=== PATIENT | female | born 1955 | race Caucasian/White ===

== ENCOUNTER → 2020-11-03 11:49 | Outpatient (CLI) | payer OTHER, SELFPAY ==
--- NOTE | ~2020-11-03 | XR_ITS ---
EXAMINATION: XR shoulder RT min 2V DATE: 11/03/2020 12:21 INDICATION: Right shoulder pain. Nontraumatic incomplete tear of right rotator cuff. TECHNIQUE: 4 views of right shoulder were obtained. COMPARISON: None. FINDINGS: Bone alignment is normal. No fracture. Glenohumeral joint is normal. There is severe acromi oclavicular joint osteoarthritis. IMPRESSION: 1. Severe right acromioclavicular joint osteoarthritis. Reviewed, dictated and finalized at location B.
== END ==
DX: M75.111 Incomplete rotator cuff tear or rupture of right shoulder, not specified as traumatic (principal); M19.011 Primary osteoarthritis, right shoulder
CPT/HCPCS: 73030

== ENCOUNTER 2021-07-23 23:01 | Emergency (ER) | payer OTHER, SELFPAY ==
[2021-07-23 23:06] VITALS: BP 125/65; PULSE 113; RESP 18; TEMP 36.4; O2SAT 98
[2021-07-24 00:03] VITALS: PULSE 97; RESP 18; O2SAT 97
--- NOTE | 2021-07-24 00:07 | PC.NURSE ---
pt choses to sit in area of waiting room (family services room) away from other pts. pt informed that she is now out of [id number] with triage nurse. if pt experiences worsening of condition she will not be seen by internet systems administrator. pt verbalizes understanding
[2021-07-24 01:44] VITALS: BP 111/82; PULSE 93; RESP 20; TEMP 36.4; O2SAT 97
--- NOTE | 2021-07-24 02:03 | ED.GENADULT ---
HPI - General Adult General Chief complaint: Allergic Reaction Stated complaint: allergic reaction Time Seen by Provider: 07/24/21 01:43 History of Present Illness HPI narrative: Patient is a 66-year-old female who presents the emergency department with chief complaint of angioedema of the tongue. 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 The patient states he is afraid that she has COVID-19 and reports that this evening she had an episode where her tongue started swelling up. Patient reports he took 40 mg of prednisone and reports that she took a dose of Benadryl. The patient states this was about 3 hours ago patient did have to wait an extended period of time in the waiting room but by the time she is arrived now she states her swelling is going down and she is back to basically her baseline. Related Data Allergies Allergy/AdvReac Type Severity Reaction Status Date / Time acetaminophen [From Tylenol] Allergy Anaphylactic Verified 07/24/21 01:49 Shock dexamethasone Allergy Anaphylactic Verified 07/24/21 01:49 Shock NSAIDS (Non-Steroidal Allergy Anaphylactic Verified 07/24/21 01:49 Anti-Inflamma Shock Penicillins Allergy Anaphylactic Verified 07/24/21 01:49 Shock Review of Systems Review of Systems: A 10 system review of systems was completed on the patient and is negative except for what is stated in the HPI. Nursing and ancillary documentation was reviewed. Exam Narrative: GENERAL: Well-appearing, well-nourished, and in no acute distress. HEAD: Normocephalic, atraumatic. EYES: PERRLA and EOMI. ENT: Nares clear, no rhinorrhea or epistaxis. Mucous membranes moist. NECK: Supple. CHEST: Clear to auscultation. No respiratory distress. HEART: Regular rate and rhythm. No murmur heard. Normal peripheral pulses. ABDOMEN: Soft, nontender, nondistended, normal active bowel sounds. EXTREMITIES: Normal range of motion. No edema. SKIN: Warm, dry, no rash. NEURO: No focal deficits. Alert and oriented x3. PSYCH: Normal mood and affect. Course Course Emergency Course: Patient states that at this time she does not want IV steroids patient will be discharged home a COVID swab was performed Vital Signs Vital signs: Vital Signs Temperature 36.4 C 07/23/21 23:06 Pulse Rate 113 H 07/23/21 23:06 Respiratory Rate 18 07/23/21 23:06 Blood Pressure 125/65 07/23/21 23:06 Pulse Oximetry 98 07/23/21 23:06 Temperature 36.4 C 07/24/21 01:44 Pulse Rate 93 07/24/21 01:44 Respiratory Rate 20 07/24/21 01:44 Blood Pressure 111/82 07/24/21 01:44 Pulse Oximetry 97 07/24/21 01:44 Medical Decision Making Vital Signs Vital Signs: Vital Signs Temperature 36.4 C 07/23/21 23:06 Pulse Rate 113 H 07/23/21 23:06 Respiratory Rate 18 07/23/21 23:06 Blood Pressure 125/65 07/23/21 23:06 Pulse Oximetry 98 07/23/21 23:06 Temperature 36.4 C 07/24/21 01:44 Pulse Rate 93 07/24/21 01:44 Respiratory Rate 20 07/24/21 01:44 Blood Pressure 111/82 07/24/21 01:44 Pulse Oximetry 97 07/24/21 01:44 Discharge Plan Discharge Clinical Impression: Angioedema Qualifiers: Encounter type: initial encounter Qualified Code(s): T78.3XXA - Angioneurotic edema, initial encounter Allergic reaction Qualifiers: Encounter type: initial encounter Qualified Code(s): T78.40XA - Allergy, unspecified, initial encounter Patient Disposition: Home, Self-Care Condition: Stable Instructions: Antibiotic Form, General Allergic Reaction (ED) Additional Instructions: Please take your steroid pulse dose. Please check the portal for your results of COVID-19 and follow-up with your primary care physician Follow-up/Referrals: Sunita,Pedro Tobin MD [Primary Care Provider] - Time of Disposition: 02:05
[2021-07-24 05:46] LABS: SARS-CoV-2 RNA PCR Negative
== END 2021-07-24 02:12 | disposition home or self-care (01) ==
PROVIDERS: Emergency Provider Emergency Medicine; PCP Family Medicine
DX: T78.3XXA Angioneurotic edema, initial encounter (principal); Z20.822 Contact with and (suspected) exposure to COVID-19
CPT/HCPCS: 99283; C9803; U0003; U0005

== ENCOUNTER 2021-10-01 21:06 | Emergency (ER) | payer OTHER, SELFPAY ==
[2021-10-01 21:09] VITALS: BP 153/84; PULSE 87; RESP 17; TEMP 36.2; O2SAT 98
--- NOTE | 2021-10-01 21:27 | ED.GENADULT ---
HPI - General Adult General Chief complaint: Environmental Exposure Stated complaint: carbon monoxide exposure Time Seen by Provider: 10/01/21 21:14 Source: patient Mode of arrival: EMS Limitations: no limitations History of Present Illness HPI narrative: 58-year-old female presented to the emergency department for evaluation of carbon monoxide poisoning. Patient states that at approximately 4:00 she pulled her car into the garage and was distracted by the house phone ringing. Patient states she ran into the home to answer the phone and had not shut off her car. Patient states about 45 minutes later she went out to the car to grab her wallet and found that the garage department closed on the car was still running. At that time patient did open the doors , got fans going and attempted to clear all the fumes. Patient does have carbon monoxide monitors on all floors of her house and states that none of the alarms went off. That was not until 630 that the patient began having some headache symptoms when she was talking to her daughter. Patient states she was also having some burning of her eyes. Patient denies any associated chest pain or shortness of breath. Patient did call EMS for evaluation. Fire evaluated and found no elevated carbon monoxide in the house. Patient's own carbon monoxide level was approximately 2 on scene. Patient is a smoker. Upon arrival to the emergency department she was rechecked and level was 1. Patient states she does feel improved. Related Data Allergies Allergy/AdvReac Type Severity Reaction Status Date / Time acetaminophen [From Tylenol] Allergy Anaphylactic Verified 10/01/21 21:08 Shock dexamethasone Allergy Anaphylactic Verified 10/01/21 21:08 Shock NSAIDS (Non-Steroidal Allergy Anaphylactic Verified 10/01/21 21:08 Anti-Inflamma Shock Penicillins Allergy Anaphylactic Verified 10/01/21 21:08 Shock Review of Systems Review of Systems: CONSTITUTIONAL: Denies fever, chills, or sweats. EYES: Describes some burning of her eyes ENT: Denies rhinorrhea, congestion, sore throat, or otalgia. CARDIOVASCULAR: Denies chest pain, palpitations, or edema. RESPIRATORY: Denies cough or dyspnea. GASTROINTESTINAL: Denies abdominal pain, nausea, vomiting, or diarrhea. GENITOURINARY: Denies dysuria or hematuria. SKIN: Denies rash or itching. MUSCULOSKELETAL: Denies back pain, joint pain, or myalgia. NEUROLOGIC: Describes headache PSYCHIATRIC: Patient states she was having some stress and anxiety related to the event Exam Narrative: APPEARANCE: Well appearing, no pain, no distress, well-nourished. HEAD: normocephalic, atraumatic. EYES: PERRLA/EOMI, conjunctivae clear. NOSE: Normal no drainage EARS:TMS clear with good light reflex. THROAT: Pharynx clear, no exudate. NECK: Supple. No adenopathy, no masses. RESPIRATORY: Airway patent, respirations nonlabored. Clear to auscultation bilaterally, no rales, rhonchi, wheezing. CARDIOVASCULAR: Regular rate and rhythm without murmurs rubs or gallops. ABDOMINAL: Soft, nontender, nondistended, normal bowel sounds MUSCULOSKELETAL: Moves all extremities. Strength/ROM intact, No edema, No calf tenderness. NEURO: Alert. Cranial nerves II through XII intact. Good gait. Good coordination SKIN: Warm, dry. Normal Color PSYCHIATRIC: Normal affect/mood. Course Course Emergency Course: Patient's carbon monoxide level was 1. Patient suspects that the headache may have been secondary to the stress of the event. Patient states that her eyes are improving. Patient had no conjunctival injection on exam. Patient states that her headache is improving. Patient was updated on the results of her carbon monoxide level and states she is comfortable with the plan for discharge to home. Patient was encouraged to continue to have close follow-up with her primary care physician. All questions signs were addressed. Vital Signs Vital signs: Vital Signs Temperature 97.2 F L 10/01/21
== END 2021-10-01 21:41 | disposition home or self-care (01) ==
PROVIDERS: Emergency Provider Emergency Medicine
DX: Z77.29 Contact with and (suspected) exposure to other hazardous substances (principal); F17.200 Nicotine dependence, unspecified, uncomplicated
CPT/HCPCS: 99281

== ENCOUNTER → 2021-10-03 13:43 | Outpatient (CLI) | payer OTHER, SELFPAY ==
--- NOTE | ~2021-10-03 | US_ITS ---
EXAMINATION: US soft tissue LE RT INDICATION: Right lower limb swelling TECHNIQUE: Targeted ultrasound of the right lower limb is performed in the area of clinical concern. COMPARISON: None available FINDINGS: No sonographically detected mass is identified in the areas of palpable concern. Normal-claribel earing subcutaneous tissues are present. IMPRESSION: 1. No specific sonographic correlate is identified for the reported palpable abnormality of concern. Further evaluation at this time should be based on clinical assessment. Continued follow-up physical examination is recommended. Reviewed, dictated and finalized at location B. IMPRESSION: 1. No specific sonographic correlate is identified for the reported palpable ab normality of concern. Further evaluation at this time should be based on clinic al assessment. Continued follow-up physical examination is recommended.
== END ==
PROVIDERS: PCP Hospitalist; Visit Provider Hospitalist
DX: M79.89 Other specified soft tissue disorders (principal)
CPT/HCPCS: 76882

== ENCOUNTER → 2021-10-05 13:06 | Outpatient (CLI) | payer OTHER, SELFPAY ==
--- NOTE | ~2021-10-05 | MR_ITS ---
EXAMINATION: MR lumbar spine wo [facility] EXAM DATE: 10/05/2021 13:38 INDICATION: Post laminectomy syndrome. TECHNIQUE: Multi-sequential, multiplanar MR images of the lumbar spine were obtained without contrast . Sagittal T1, T2, T2 fat saturation images. Axial T2 weighted images. There is no prior study for comparison. FINDINGS: There is 4 mm anterolisthesis L3 on L4, 3 mm anterolisthesis L4 on L5. The conus medullaris terminates at the T12-L1 level and has normal signal intensity and morphology. There is rudimentary L5-S1 disc space. Mild diffuse lumbar disc disease. There are no suspicious marrow signal abnormalit ies. Paraspinal soft tissue is unremarkable. Level by level evaluation: T11-12: Disc does not extend beyond the endplate margin. Facet arthropathy: Mild. Neural foraminal stenosis: No stenosis. Central canal stenosis: No stenosis. T12-L1: Disc does not extend beyond the endplate margin. Facet arthropathy: Mild. Neural foraminal stenosis: No stenosis. Central canal stenosis: No stenosis. L1-L2: There is a mild diffuse disc bulge. Facet arthropathy: Mild to moderate. Neural foraminal stenosis: No stenosis. Central canal stenosis: No stenosis. L2-L3: There is a moderate diffuse disc bulge. Facet arthropathy: Moderate . Ligamentum flavum enlargement. Neural foraminal stenosis: Mild to moderate left, mild right. Central canal stenosis: Moderate to severe. L3-L4: There is a mild to moderate diffuse disc bulge. Facet arthropathy: Moderate to severe left, moderate right. Neural foraminal stenosis: Mild to moderate bilateral. Central canal stenosis: Laminotomies, posterior decompression. L4-L5: There is a mild diffuse disc bulge. Facet arthropathy: Moderate to severe left, moderate right. Neural foraminal stenosis: Mild to moderate bilateral. Central canal stenosis: Mild to moderate. L5-S1: Rudimentary disc. Facet arthropathy: Mild. Neural foraminal stenosis: No stenosis. Central canal stenosis: No stenosis. IMPRESSION: 1. Transitional L5 segment with rudimentary L5-S1 disc. 2. Grade 1 anterolisthesis L3 on L4 and L4 on L5. 3. L2-3 moderate to severe central canal stenosis. Reviewed, dictated and finalized at location G.
== END ==
PROVIDERS: Visit Provider Hospitalist
DX: M96.1 Postlaminectomy syndrome, not elsewhere classified (principal); M47.817 Spondylosis without myelopathy or radiculopathy, lumbosacral region; M48.07 Spinal stenosis, lumbosacral region; M47.815 Spondylosis without myelopathy or radiculopathy, thoracolumbar region; M48.05 Spinal stenosis, thoracolumbar region
CPT/HCPCS: 72148

== ENCOUNTER 2022-08-06 14:20 | Outpatient (CLI) | payer OTHER, MEDICARE, SELFPAY ==
--- NOTE | ~2022-08-06 | MR_ITS ---
EXAMINATION: MR cervical spine wo con DATE: 08/06/2022 14:52 INDICATION: Unspecified ataxia TECHNIQUE: Magnetic resonance imaging (MRI) of the cervical spine was performed without intravenous c ontrast. Sequences included sagittal T2-weighted FSE, sagittal T2-weighted FS FSE, sagittal T1-weight ed FSE, axial MERGE and axial T2-weighted FSE. COMPARISON: None FINDINGS: 2 mm retrolisthesis C3 on C4, C5 on C6 and 1 mm retrolisthesis C6 on C7. Vertebral body heights are n ormal. Moderate to severe disc height loss at C3-C4 and C5-C6, moderate disc height loss at C6-C7, T3 -T4 and T4-T5 and mild disc height loss at C4-C5. Fibrovascular degenerative endplate changes at T4-T 5. Cord signal intensity is normal. Cervical soft tissues are unremarkable. The following disc levels are specifically discussed: C2-C3: The disc does not extend beyond the endplate margin. There is mild left uncovertebral joint os teoarthritis. There is mild bilateral facet joint osteoarthritis. There is no neural foraminal stenos is. There is no central canal stenosis. C3-C4: Disc is bulging. There is severe bilateral uncovertebral joint osteoarthritis. There is modera te left and severe right facet joint osteoarthritis. There is moderate bilateral neural foraminal jimy nosis. There is mild central canal stenosis with mild flattening of the ventral surface of the cord. C4-C5: Disc is mildly bulging. There is mild left and moderate right uncovertebral joint osteoarthrit is. There is moderate left and severe right facet joint osteoarthritis. There is mild left and modera te right neural foraminal stenosis. There is mild central canal stenosis. C5-C6: Posterior disc osteophyte complex. There is severe bilateral uncovertebral joint osteoarthriti s. There is mild bilateral facet joint osteoarthritis. There is moderate bilateral neural foraminal s tenosis. There is mild central canal stenosis. C6-C7: Disc is bulging. There is severe bilateral uncovertebral joint osteoarthritis. There is mild b ilateral facet joint osteoarthritis. There is moderate bilateral neural foraminal stenosis. There is mild central canal stenosis. C7-T1: The disc does not extend beyond the endplate margin. There is mild bilateral uncovertebral starr nt osteoarthritis. There is mild right and moderate left facet joint osteoarthritis. There is no neur al foraminal stenosis. There is no central canal stenosis. IMPRESSION: 1. Moderate to severe cervical spondylosis. Reviewed, dictated and finalized at location B. HAND
== END 2022-08-06 14:21 ==
LOC: MICIMG 14:21
PROVIDERS: PCP Hospitalist
DX: R27.0 Ataxia, unspecified (principal)
CPT/HCPCS: 72141

== ENCOUNTER → 2022-08-06 14:24 | Outpatient (CLI) | payer OTHER, MEDICARE, SELFPAY ==
--- NOTE | ~2022-08-06 | MR_ITS ---
EXAMINATION: MR lumbar spine wo con DATE: 08/06/2022 14:59 INDICATION: Spinal stenosis, lumbar region without neurogenic claudication. Low back pain. Bilateral leg pain. TECHNIQUE: Magnetic resonance imaging (MRI) of the lumbar spine was performed without intravenous con trast. Sequences included sagittal T2-weighted FSE, sagittal T2-weighted FS FSE, sagittal T1-weighted FSE, and axial T2-weighted FSE. COMPARISON: Lumbar spine MRI 10/05/2021 FINDINGS: L5 is a transitional segment. There is 3 degrees levocurvature of lumbar spine. There is 3 mm anterolisthesis of L3 on L4 and L4 on L5. Vertebral body heights are normal. There is mildly decre ased disc height at L2-L3, L3-L4, and L4-L5. The distal spinal cord signal intensity is normal. The c onus medullaris is at T12. The following disc levels are specifically discussed: L1-L2: The disc is bulging. There is moderate bilateral facet joint osteoarthritis. There is mild laice ateral neural foraminal stenosis. There is mild central canal stenosis. L2-L3: The disc is bulging and has an annular fissure. There is moderate bilateral facet joint osteoa rthritis. There is mild bilateral neural foraminal stenosis. There is moderate central canal stenosis . L3-L4: The disc is bulging and has an annular fissure. There is severe bilateral facet joint osteoart hritis. There is mild bilateral neural foraminal stenosis. There is mild central canal stenosis. Ther e are changes of posterior decompression. L4-L5: The disc is bulging and has an annular fissure. There is severe bilateral facet joint osteoart hritis. There is mild bilateral neural foraminal stenosis. There is no central canal stenosis. L5-S1: The disc does not extend beyond the endplate margin. There is moderate bilateral facet joint o steoarthritis. There is no neural foraminal stenosis. There is no central canal stenosis. IMPRESSION: 1. Moderate lumbar spondylosis, stable from 10/05/2021. Reviewed, dictated and finalized at location A. P TECHNICIAN
== END ==
PROVIDERS: PCP Hospitalist; Visit Provider Hospitalist
DX: M48.061 Spinal stenosis, lumbar region without neurogenic claudication (principal)
CPT/HCPCS: 72148

== ENCOUNTER 2022-08-17 20:42 | Emergency (ER) | payer OTHER, MEDICARE, SELFPAY ==
[2022-08-17 20:45] VITALS: PULSE 105; RESP 17; O2SAT 98
[2022-08-17] MEDS: diphenhydrAMINE HCl INJ 50 MG/ML VIAL IV PUSH (20:54)
--- NOTE | 2022-08-17 20:58 | ED.ALLEREA ---
HPI - Allergic Reaction General Chief complaint: Allergic Reaction Stated complaint: allergic reaction Time Seen by Provider: 08/17/22 20:47 History of Present Illness HPI narrative: 67-year-old female with history of idiopathic angioedema presented to the emergency department for evaluation of worsening tongue swelling. Patient states that yesterday she had a colonoscopy and states after the colonoscopy she felt she was having worsening tongue swelling. Patient denies any chest pain or shortness of breath. Patient states she did take Tagamet at home. Patient is not currently on prednisone. Patient states she did take some Benadryl. Related Data Allergies Allergy/AdvReac Type Severity Reaction Status Date / Time acetaminophen [From Tylenol] Allergy Anaphylactic Verified 10/01/21 21:08 Shock dexamethasone Allergy Anaphylactic Verified 10/01/21 21:08 Shock famotidine Allergy Swelling Verified 08/17/22 20:59 of Lip/Tongue/Throat NSAIDS (Non-Steroidal Allergy Anaphylactic Verified 10/01/21 21:08 Anti-Inflamma Shock Penicillins Allergy Anaphylactic Verified 10/01/21 21:08 Shock Review of Systems Review of Systems: CONSTITUTIONAL: Denies fever, chills, or sweats. EYES: Denies visual changes, redness, or discharge. ENT: Denies rhinorrhea, congestion, sore throat, or otalgia. CARDIOVASCULAR: Denies chest pain, palpitations, or edema. RESPIRATORY: See HPI GASTROINTESTINAL: Denies abdominal pain, nausea, vomiting, or diarrhea. GENITOURINARY: Denies dysuria or hematuria. SKIN: Denies rash or itching. MUSCULOSKELETAL: Denies back pain, joint pain, or myalgia. NEUROLOGIC: Denies headache, numbness, or weakness. Exam Narrative: APPEARANCE: Well appearing, no pain, no distress, well-nourished. HEAD: normocephalic, atraumatic. EYES: PERRLA/EOMI, conjunctivae clear. NOSE: Normal no drainage EARS:TMS clear with good light reflex. THROAT: No significant tongue swelling. Normal Mallampati. No change in phonation. NECK: Supple. No adenopathy, no masses. RESPIRATORY: Airway patent, respirations nonlabored. Clear to auscultation bilaterally, no rales, rhonchi, wheezing. CARDIOVASCULAR: Regular rate and rhythm without murmurs rubs or gallops. ABDOMINAL: Soft, nontender, nondistended, normal bowel sounds MUSCULOSKELETAL: Moves all extremities. Strength/ROM intact, No edema, No calf tenderness. NEURO: Alert. Cranial nerves II through XII intact. Grossly intact SKIN: Warm, dry. Normal Color Course Course Emergency Course: Patient reports an allergy to dexamethasone but cannot take prednisone. Patient reports an allergy to famotidine but cannot take Tagamet. Patient was treated with po prednisone and IV Benadryl upon arrival to the emergency department. On reexamination patient still has no significant swelling. Patient states she does feel improved. Patient will be treated with prednisone for the next few days. All questions and concerns were addressed. Differential diagnosis patient's symptoms does include idiopathic angioedema, angioedema, allergic reaction. With no significant tongue swelling but improvement of her symptoms with steroid and prednisone. Allergic reaction is a possibility. Patient will be continued on prednisone at home. Patient states she is unable to tolerate 50 mg of prednisone but states she can tolerate 20 mg p.o. daily prednisone. Patient was educated on reasons to return to the emergency department. All question concerns were addressed. Vital Signs Vital signs: Vital Signs Pulse Rate 105 H 08/17/22 20:45 Respiratory Rate 17 08/17/22 20:45 Pulse Oximetry 98 08/17/22 20:45 Pulse Rate 105 H 08/17/22 20:45 Respiratory Rate 17 08/17/22 20:45 Pulse Oximetry 98 08/17/22 20:45 Discharge Plan Discharge Clinical Impression: Allergic reaction Patient Disposition: Home, Self-Care Condition: Stable Instructions: Antibiotic Form, General Allergic [place]
[2022-08-17] MEDS: diphenhydrAMINE HCl INJ 50 MG/ML VIAL (21:04)
[2022-08-17] MEDS: predniSONE 40 MG, predniSONE 10 MG 50 MG PO (22:46)
--- NOTE | 2022-08-18 03:35 | PC.NURSE ---
The primary RN for this pt went home sick before discharging the pt off the board. This RN is removing the pt because primary RN is no longer available.
== END 2022-08-18 03:38 | disposition home or self-care (01) ==
PROVIDERS: Emergency Provider Emergency Medicine; PCP Hospitalist
DX: T78.40XA Allergy, unspecified, initial encounter (principal); Z98.890 Other specified postprocedural states
CPT/HCPCS: 96374; 99284; J1200; J2930; J7512

== ENCOUNTER 2023-04-22 21:32 | Emergency (ER) | payer OTHER, MEDICARE, SELFPAY ==
[2023-04-22 21:40] VITALS: BP 116/82; PULSE 99; RESP 16; TEMP 36.3; O2SAT 100
--- NOTE | 2023-04-22 22:15 | ECG_ITS ---
Measurements Intervals [place] Rate: 77 P: 58 MD: 156 QRS: 9 QRSD: 84 T: 35 QT: 386 QTc: 437 Interpretive Statements SINUS RHYTHM POSSIBLE LEFT ATRIAL ENLARGEMENT [-0.1mV P-WAVE IN V1/V2] POSSIBLE ANTERIOR MYOCARDIAL INFARCTION , PROBABLY OLD [30 ms Q WAVE IN V3/V4, OR R < 0.2 mV IN V4] NO PREVIOUS ECG AVAILABLE FOR COMPARISON Electronically Signed On 04-23-2023 15:59:06 CDT by Veronica Arguelles M.D.
--- NOTE | 2023-04-22 22:50 | PC.NURSE ---
Pt has early appointments and states she feels safe to go home. Pt left in NAD.
== END 2023-04-22 23:01 | disposition left against medical advice (07) ==
PROVIDERS: Emergency Provider Emergency Medicine
DX: G89.29 Other chronic pain (principal)
CPT/HCPCS: 93005; 99199

== ENCOUNTER 2023-06-28 17:52 | Emergency (ER) | payer OTHER, MEDICARE, SELFPAY ==
--- NOTE | ~2023-06-28 | XR_ITS ---
EXAMINATION: XR chest 2V DATE: 06/28/2023 19:27 INDICATION: Cough TECHNIQUE: PA and lateral views of the chest were obtained. COMPARISON: None FINDINGS: The lungs are clear with no focal airspace opacities, pulmonary edema, pleural effusion or pneumothor ax. [Size is normal. Prominent right pericardial fat pad. Severe thoracic spondylosis with chronic ap pearing mild anterior wedging of a few mid thoracic vertebral bodies. Suggestion of pectus excavatum. IMPRESSION: 1. No acute cardiopulmonary disease. Reviewed, dictated and finalized at location A. CDL DRIVER
[2023-06-28 18:09] VITALS: BP 127/59; PULSE 98; RESP 18; TEMP 37.4; O2SAT 98
--- NOTE | 2023-06-28 19:14 | ED.FEVER ---
HPI - Fever General Chief Complaint: Fever Stated Complaint: Fever, dizziness, chils Time Seen by Provider: 06/28/23 18:20 History of Present Illness HPI Narrative: 68-year-old female with a hx of idiopathic angioedema reports for evaluation for maxillary sinus pain and congestion, post nasal drainage, cough and nausea for the past 3 days. Patient states she began feeling generalized malaise today took her temperature at home was 100? which prompted her to come to the ED. Her temperature upon arrival is 99.4 without intervention. She denies sore throat, abdominal pain, nausea, vomiting, diarrhea, chest pain, dysuria or hematuria, urinary frequency or urgency. States that she did feel short of breath last night while in the middle the night, however currently does not feel short of breath. Patient does state she smokes. Patient is concerned she has COVID. Related Data Allergies Allergy/AdvReac Type Severity Reaction Status Date / Time acetaminophen [From Tylenol] Allergy Anaphylactic Verified 06/28/23 18:15 Shock dexamethasone Allergy Anaphylactic Verified 06/28/23 18:15 Shock famotidine Allergy Swelling Verified 06/28/23 18:15 of Lip/Tongue/Throat NSAIDS (Non-Steroidal Allergy Anaphylactic Verified 06/28/23 18:15 Anti-Inflamma Shock Penicillins Allergy Anaphylactic Verified 06/28/23 18:15 Shock Review of Systems Review of Systems: CONSTITUTIONAL: See HPI EYES: Denies visual changes, redness, or discharge. ENT: Denies rhinorrhea, congestion, sore throat, or otalgia. CARDIOVASCULAR: Denies chest pain, palpitations, or edema. RESPIRATORY: See HPI GASTROINTESTINAL: Denies abdominal pain, nausea, vomiting, or diarrhea. GENITOURINARY: Denies dysuria or hematuria. SKIN: Denies rash or itching. MUSCULOSKELETAL: Denies back pain, joint pain, or myalgia. NEUROLOGIC: Denies headache, numbness, or weakness. PSYCHIATRIC: Denies anxiety or depression. Exam Narrative: GENERAL: Well-appearing, well-nourished, and in no acute distress. HEAD: Normocephalic, atraumatic. EYES: PERRLA and EOMI. Conjunctiva mildly injected ENT: Nares clear, no rhinorrhea or epistaxis. Mucous membranes moist. Posterior pharynx without erythema or tonsillar hypertrophy. Tenderness over the maxillary sinuses. NECK: Supple. CHEST: Clear to auscultation. No respiratory distress. HEART: Regular rate and rhythm. No murmur heard. Normal peripheral pulses. ABDOMEN: Soft, nontender, nondistended, normal active bowel sounds. No CVA tenderness. EXTREMITIES: Normal range of motion. No edema. SKIN: Warm, dry, no rash. NEURO: No focal deficits. Alert and oriented x3 Course Vital Signs Vital signs: Vital Signs Temperature 99.4 F 06/28/23 18:09 Pulse Rate 98 06/28/23 18:09 Respiratory Rate 18 06/28/23 18:09 Blood Pressure 127/59 L 06/28/23 18:09 Pulse Oximetry 98 06/28/23 18:09 Oxygen Delivery Room Air 06/28/23 18:09 Temperature 99.4 F 06/28/23 18:09 Pulse Rate 98 06/28/23 18:09 Respiratory Rate 18 06/28/23 18:09 Blood Pressure 127/59 L 06/28/23 18:09 Pulse Oximetry 98 06/28/23 18:09 Oxygen Delivery Room Air 06/28/23 18:09 MDM - Fever MDM Narrative Medical decision making narrative: 68-year-old female reports for evaluation for cough, sinus congestion, PND and nausea for the past 3 days. See HPI for further history. Vitals stable the patient is afebrile upon arrival. She is well-appearing on exam. Lung sounds are clear. Chest x-ray shows no acute cardiopulmonary abnormality. COVID, flu and RSV tests are negative. Labs discussed with the patient. I did offer to obtain further testing including lab work and urinalysis to identify source of her reported fever. She is declining further workup at this time. Additionally, she is now reporting crusting to her bilateral eyes and pain to her eyes. Her conjunctiva are mildly injected and consistent with viral conjunctivitis, howev
[2023-06-28 20:13] LABS: Influenza A QL RT-PCR Negative (Negative); Influenza B QL RT-PCR Negative (Negative); RSV RNA, RT-PCR Negative (Negative); SARS-CoV-2 RNA PCR Negative (Negative)
[2023-06-28 20:20] VITALS: RESP 18; O2SAT 98
== END 2023-06-28 20:48 | disposition home or self-care (01) ==
PROVIDERS: Emergency Provider Physician Assistant; PCP Hospitalist
DX: J06.9 Acute upper respiratory infection, unspecified (principal); Z20.822 Contact with and (suspected) exposure to COVID-19
CPT/HCPCS: 71046; 87637; 99283

== ENCOUNTER 2023-07-23 23:18 | Emergency (ER) | payer OTHER, MEDICARE, SELFPAY ==
--- NOTE | ~2023-07-23 | CT_ITS ---
Non-contrast Head CT History: Headache Technique: Axial non-contrast imaging of the brain was performed. Dose reduction technique was used on this scan by utilizing automated exposure control and iterative reconstruction technique. The dose -length product (DLP) was 605.33 mGy-cm. Findings: There is no evidence of intracranial hemorrhage, mass lesion, or acute infarct. Brain par enchyma appears normal. The ventricles and subarachnoid spaces are normal in size. The calvarium ap pears normal. The visualized paranasal sinuses and mastoid air cells are clear. Impression: No significant abnormality seen. Reviewed, dictated and finalized at location . [employer] Impression: No significant abnormality seen.
[2023-07-23 23:23] VITALS: BP 151/84; PULSE 109; RESP 20; TEMP 37.1; O2SAT 98
--- NOTE | 2023-07-24 01:08 | ECG_ITS ---
Measurements Intervals [place] Rate: 73 P: 65 NH: 169 QRS: -17 QRSD: 85 T: 9 QT: 408 QTc: 452 Interpretive Statements SINUS RHYTHM POSSIBLE LEFT ATRIAL ENLARGEMENT POSSIBLE LEFT VENTRICULAR HYPERTROPHY ANTEROSEPTAL INFARCT, AGE INDETERMINATE CONSIDER INFERIOR INFARCT, AGE INDETERMINATE ABNORMAL ECG COMPARED TO ECG 04/22/2023 22:20:24 NO SIGNIFICANT CHANGES Electronically Signed On 07-24-2023 5:31:41 IRRIGATION MANAGER by Vinnie Gore D.O.
[2023-07-24] MEDS: LORazepam INJ (*CRX) 2 MG/ML VIAL 0.5 MG IV PUSH (01:29)
[2023-07-24] MEDS: SODIUM CHLORIDE 0.9% IV 1,000 ML 999 ML IV CONT (01:30)
[2023-07-24 01:46] LABS: Alanine Aminotransferase 21 U/L (6-35); Albumin Level 4.1 g/dL (3.5-5.1); Alkaline Phosphatase 71 U/L (38-126); Anion Gap 10 mmol/L (8-16); Aspartate Amino Transferase 23 U/L (14-36); Bilirubin,Total 0.3 mg/dL (0.2-1.3); Blood Urea Nitrogen 16 mg/dL (7-17); Calcium 9.7 mg/dL (8.4-10.2); Carbon Dioxide 27 mmol/L (22-30); Chloride 102 mmol/L (98-107); Estimated CRCL calculation 53 ml/min; Estimated Glomerular Filt Rate > 60; Glucose 129 mg/dL (65-110); Magnesium 1.9 mg/dL (1.6-2.3); Potassium 3.8 mmol/L (3.4-5.0); Sodium 139 mmol/L (137-145)
[2023-07-24 01:48] LABS: Appearance Urine Clear (Clear); Bilirubin Urine Negative (Negative); Blood Urine Negative (Negative); Color Urine Yellow (Yellow); Glucose Urine UA Negative (Negative); Ketones Urine Negative (Negative); Nitrate Urine Negative (Negative); Protein Urine Negative (Negative)
[2023-07-24 01:49] LABS: Add Urine Microscopic? NO; Leukocyte Esterase Ur Negative LEU/UL (Negative); Urobilinogen Urine 0.2 mg/dL (<2.0)
--- NOTE | 2023-07-24 02:09 | ED.GENADULT ---
HPI - General Adult General Chief complaint: Headache Stated complaint: headache and facial twitching Time Seen by Provider: 07/24/23 00:54 History of Present Illness HPI narrative: Patient is a 68-year-old female who presents emergency department with chief complaint of headache and facial twitching. The patient reports she has had a little bit of a headache for the last 2 weeks and also reports that intermittently she has had a little bit of a twitch to her lower cheek. The patient reports that this has been ongoing for about 2 weeks has been under a lot of stress lately patient reports that time she called the nurse for her insurance company and they recommended that she come to the emergency department for evaluation Related Data Allergies Allergy/AdvReac Type Severity Reaction Status Date / Time acetaminophen [From Tylenol] Allergy Anaphylactic Verified 06/28/23 18:15 Shock dexamethasone Allergy Anaphylactic Verified 06/28/23 18:15 Shock famotidine Allergy Swelling Verified 06/28/23 18:15 of Lip/Tongue/Throat NSAIDS (Non-Steroidal Allergy Anaphylactic Verified 06/28/23 18:15 Anti-Inflamma Shock Penicillins Allergy Anaphylactic Verified 06/28/23 18:15 Shock Review of Systems Review of Systems: A 10 system review of systems was completed on the patient and is negative except for what is stated in the HPI. Nursing and ancillary documentation was reviewed. Exam Narrative: GENERAL: Well-appearing, well-nourished, and in no acute distress. HEAD: Normocephalic, atraumatic. EYES: PERRLA and EOMI. ENT: Nares clear, no rhinorrhea or epistaxis. Mucous membranes moist. NECK: Supple. CHEST: Clear to auscultation. No respiratory distress. HEART: Regular rate and rhythm. No murmur heard. Normal peripheral pulses. ABDOMEN: Soft, nontender, nondistended, normal active bowel sounds. EXTREMITIES: Normal range of motion. No edema. SKIN: Warm, dry, no rash. NEURO: No focal deficits. Alert and oriented x3. PSYCH: Normal mood and affect. Course Vital Signs Vital signs: Vital Signs Temperature 37.1 C 07/23/23 23:23 Pulse Rate 109 H 07/23/23 23:23 Respiratory Rate 20 07/23/23 23:23 Blood Pressure 151/84 H 07/23/23 23:23 Pulse Oximetry 98 07/23/23 23:23 Oxygen Delivery Room Air 07/23/23 23:23 Temperature 37.1 C 07/23/23 23:23 Pulse Rate 100 07/24/23 02:42 Respiratory Rate 16 07/24/23 02:42 Blood Pressure 119/96 H 07/24/23 02:42 Pulse Oximetry 97 07/24/23 02:42 Oxygen Delivery Room Air 07/23/23 23:23 Medical Decision Making MDM Narrative Medical decision making narrative: Differential diagnosis includes electrolyte abnormality, anxiety, dehydration, intracranial hemorrhage, intracranial mass CT scan of the head showed no evidence of acute abnormality Electrolytes showed potassium of 3.8 this was slightly low and the patient was given p.o. potassium in the emergency department. Magnesium was 1.9 the patient was given IV magnesium in the ER. Urinalysis showed no evidence UTI Vital Signs Vital Signs: Vital Signs Temperature 37.1 C 07/23/23 23:23 Pulse Rate 109 H 07/23/23 23:23 Respiratory Rate 20 07/23/23 23:23 Blood Pressure 151/84 H 07/23/23 23:23 Pulse Oximetry 98 07/23/23 23:23 Oxygen Delivery Room Air 07/23/23 23:23 Temperature 37.1 C 07/23/23 23:23 Pulse Rate 100 07/24/23 02:42 Respiratory Rate 16 07/24/23 02:42 Blood Pressure 119/96 H 07/24/23 02:42 Pulse Oximetry 97 07/24/23 02:42 Oxygen Delivery Room Air 07/23/23 23:23 Lab Data 07/24/23 01:28 07/24/23 01:28 Labs: Lab Results 07/24/23 Range/Units 01:28 WBC 6.7 (4.5-10.0) K/mm3 RBC 4.52 (4.2-5.4) M/mm3 Hgb 13.9 (12.0-15.0) g/dL Hct 43.5 (37.0-47.0) % MCV 96.2 (80-100) fl MCH 30.8 (26-34) pg MCHC 32.0 (32-36) g/dl RDW 13.1 (11.5-14.5) % Plt Count 190 (150-3
[2023-07-24 02:24] LABS: Basophils Absolute Auto 0.1 K/mm3 (0.0-0.1); Eosinophils Absolute Auto 0.2 K/mm3 (0-0.3); Eosinophils Percent Auto 3.3 % (0-4.4); Hematocrit 43.5 % (37.0-47.0); Hemoglobin 13.9 g/dL (12.0-15.0); Immature Granulocyte Absolute 0.02 K/mm3 (0.00-0.031); Immature Granulocyte Percent A 0.3 % (0-0.5); Lymphocytes Absolute Auto 2.29 K/mm3 (0.9-3.2); Lymphocytes Percent Auto 34.1 % (18.3-44.2); Mean Corpuscular Hemoglobin 30.8 pg (26-34); Mean Corpuscular Volume 96.2 fl (80-100); Mean Platelet Volume 10.4 fl (7.4-10.4); Monocytes Absolute Auto 0.5 K/mm3 (0.1-0.6); Monocytes Percent Auto 7.1 % (2.6-8.5); Neutrophils Absolute Auto 3.6 K/mm3 (1.3-6.7); Neutrophils Percent Auto 54.2 % (45.5-73.1); Platelet Count Result 190 k/mm3 (150-375); Red Blood Count 4.52 M/mm3 (4.2-5.4); Red Cell Distribution Width 13.1 % (11.5-14.5); White Blood Count 6.7 K/mm3 (4.5-10.0)
[2023-07-24] MEDS: MAGNESIUM SULF 2 GM/WATER 50ML 2 GM/50 ML BAG IVPB (02:36)
[2023-07-24] MEDS: POTASSIUM CHLORIDE 20 MEQ PACKET (FOR LIQUID) 40 MEQ PO (02:36)
[2023-07-24 02:42] VITALS: BP 119/96; PULSE 100; RESP 16; O2SAT 97
--- NOTE | 2023-07-29 12:10 | PC.NURSE ---
LATE ENTRY This note is being entered to document information to the patient's record. The following information was omitted on [07/24/23], by [Jodi Zuniga RN]. Magnesium gtt ended at 0330
== END 2023-07-24 03:16 | disposition home or self-care (01) ==
PROVIDERS: Emergency Provider Emergency Medicine; PCP Hospitalist
DX: R51.9 Headache, unspecified (principal); M62.838 Other muscle spasm
CPT/HCPCS: 36415; 70450; 80053; 81003; 83735; 85025; 93005; 96361; 96365; 96375; 99284; A9270; J2060; J3475; J7030

== ENCOUNTER 2023-10-02 14:03 | Outpatient (CLI) | payer OTHER, MEDICARE, SELFPAY ==
--- NOTE | ~2023-10-02 | XR_ITS ---
XR hip LT min 2V DATE: 10/02/2023 14:47 INDICATION: Left hip pain TECHNIQUE: AP and lateral views COMPARISON: None FINDINGS: The pubic symphysis and sacral iliac joints are intact. No fracture or dislocation or avascular necrosis or bone destruction of the left hip joint. Left hip joint space appears relatively well preserved. IMPRESSION: No significant abnormality of left hip Reviewed, dictated and finalized at location B.
== END 2023-10-02 14:04 ==
LOC: MICIMG 14:07
PROVIDERS: PCP Hospitalist; Visit Provider Hospitalist
DX: M25.552 Pain in left hip (principal); G89.29 Other chronic pain
CPT/HCPCS: 73502